=== PATIENT | male | born 1970 | race Caucasian/White ===

== ENCOUNTER 2016-04-08 08:55 | Emergency (ER) | payer BC ==
[2016-04-08 09:08] VITALS: BP 134/86; PULSE 70; RESP 18; TEMP 97.9; O2SAT 95
--- NOTE | 2016-04-08 09:20 | UCPHY ---
H & P Time Seen by Provider: 04/08/16 09:05 Patient Type: Established HPI/ROS: This patient describes skin lesions to the back of the scalp over the past week or so causing moderate discomfort. He was seen by Dr. Rodríguez today upstairs- primary care physician who started him on Bactrim but Dr. Rodríguez felt that 1 of them could be I&D done sent him here for that procedure. The patient reports mild to moderate discomfort associated with the lesions. He has never had this before. ROS: No fevers or chills. No other constitutional symptoms. HEENT: No URI symptoms. No headache or confusion. No drainage from the lesions. 5 point ROS is otherwise negative. Past Medical/Surgical History: Coronary artery disease [id number] diabetes Smoking Status: Former smoker Physical Exam: Physical Exam Vital signs are normal. General: No acute distress HEENT: No intraoral lesions. Eyes: Pupils equal and react to light. Extraocular motions are intact. Lungs: No respiratory distress. Cardiac: Brisk capillary refill is intact throughout. Pulses are 2+ and symmetric in the affected extremity. Skin: No rash or pallor. Patient has an erythematous papule to the occiput with mild tenderness. It is 1.5 cm in size and a 2nd lesion inferior to this that is slightly ulcerated tender and swollen. Neuro: Alert Initial differential diagnosis: Folliculitis versus MRSA lesions Constitutional: Initial Vital Signs Temperature (C) 36.6 C 04/08/16 09:05 Heart Rate 70 04/08/16 09:05 Respiratory Rate 18 04/08/16 09:05 Blood Pressure 134/86 H 04/08/16 09:05 O2 Sat (%) 95 04/08/16 09:05 O2 Delivery Mode Room Air Allergies/Adverse Reactions: No Known Allergies Allergy (Verified 04/08/16 09:03) Home Medications: Medication Instructions Recorded ASPIRIN [ECOTRIN] 04/08/16 Atorvastatin Calcium [Lipitor 10 04/08/16 mg (*)] Carvedilol 04/08/16 Clopidogrel Bisulfate [Plavix (*)] 04/08/16 Losartan Potassium [Cozaar 25 mg 04/08/16 (*)] Metformin HCl [Metformin 1000 mg] 04/08/16 Nitroglycerin [Nitrostat] 04/08/16 MDM/Departure - [facility] Procedures: I&D simple abscess: After verbal consent scrubbed the area with chlorhexidine. I used a 1% plain lidocaine, 27 gauge needle, 2 mL to the inferior lesion of the occiput with good effect. I then used a 11. Scalpel blade made a small T- shaped incision with release of minimal discharge with massage the area. Patient tolerated this well. A culture sent and pending. Dressing is applied. There were no complications. The patient tolerated the procedure well - Depart Disposition: Home, Routine, Self-Care Clinical Impression: Furuncle Condition: Good Instructions: Abscess (ED) Additional Instructions: Diagnosis: Furuncle (small abscess) Plan: Take the sulfa antibiotic as prescribed by Dr. Rodríguez Ibuprofen Tylenol for discomfort Apply warm packs to the affected area Return for any significant worsening despite the treatment plan. Referrals: Meño Rodríguez MD [Primary Care Provider] - As per Instructions - PQRS PQRS Measurement: NA
== END 2016-04-08 09:36 | disposition home or self-care (01) ==
LOC: CED 08:55
PROC: 0J9 Subcutaneous Tissue and Fascia, Drainage (ICD-10-PCS; principal; 2016-04-08)
DX: L02.821 Furuncle of head [any part, except face] (principal); Z87.891 Personal history of nicotine dependence
CPT/HCPCS: 99213-PO; G0463-PO

== ENCOUNTER 2016-04-13 13:10 | Emergency (ER) | payer BC ==
[2016-04-13 13:46] VITALS: BP 115/69; PULSE 79; RESP 18; TEMP 98.8; O2SAT 95
--- NOTE | 2016-04-13 15:20 | UCPHY ---
H & P Time Seen by Provider: 04/13/16 14:08 Patient Type: Established HPI/ROS: This patient returns with a lump on the back of the scalp there is having discomfort from the scalp lesion & some discharge. I saw this patient 5 days ago as addendum on Bactrim for folliculitis. At that time he did have 1 furuncle on his scalp that I indeed and is growing methicillin sensitive Staph. Most of his folliculitis on his face has significantly improve with the exception of this 1 lesion on the back of his occiput. ROS: No fevers or chills. No other constitutional symptoms. He reports no other skin complaints. No vomiting. 5 point ROS is otherwise negative. Past Medical/Surgical History: Folliculitis-as noted above otherwise healthy Smoking Status: Former smoker Physical Exam: Physical Exam Vital signs are normal. General: No acute distress Eyes: Pupils equal and react to light. Extraocular motions are intact. Lungs: No respiratory distress. Cardiac: Brisk capillary refill is intact throughout. Skin: There is a 2 cm area of swelling and fluctuance to the patient's scalp with associated erythema and warmth to touch. There is associated tenderness. Neuro: Alert and oriented x3 with no sensorimotor deficits. Constitutional: Initial Vital Signs Temperature (C) 37.1 C 04/13/16 13:42 Heart Rate 79 04/13/16 13:42 Respiratory Rate 18 04/13/16 13:42 Blood Pressure 115/69 04/13/16 13:42 O2 Sat (%) 95 04/13/16 13:42 O2 Delivery Mode Room Air Allergies/Adverse Reactions: No Known Allergies Allergy (Verified 04/13/16 13:42) Home Medications: Medication Instructions Recorded ASPIRIN [ECOTRIN] 04/08/16 Atorvastatin Calcium [Lipitor 10 04/08/16 mg (*)] Carvedilol 04/08/16 Clopidogrel Bisulfate [Plavix (*)] 04/08/16 Losartan Potassium [Cozaar 25 mg 04/08/16 (*)] Metformin HCl [Metformin 1000 mg] 04/08/16 Nitroglycerin [Nitrostat] 04/08/16 MDM/Departure - MDM Diagnostics: Simple I&D: After verbal consent basal chlorhexidine scrub. 1% lidocaine anesthesia, 27 gauge needle, 2 mL with good effect. A.c. 11. Scalpel blade and made a small T-shaped incision. With massage there is a small amount of purulent material is expressed and sent for culture. I then further massage the area until there is no further purulence. I then irrigated the cavity with saline with clear return. Bacitracin and dressing were applied. I counseled the patient regarding the abscess. No complications ED Course/Re-evaluation: The patient will continue on Bactrim for his methicillin sensitive Staph. - Depart Disposition: Home, Routine, Self-Care Clinical Impression: Scalp abscess Condition: Good Instructions: Abscess (ED) Additional Instructions: Diagnosis: Scalp abscess Plan: Clean the wound daily with warm soapy water Continue incomplete your Bactrim antibiotic Ibuprofen Tylenol for discomfort as needed Return for any significant worsening despite treatment plan Referrals: Meño Rodríguez MD [Primary Care Provider] - As per Instructions - PQRS PQRS Measurement: NA
== END 2016-04-13 16:02 | disposition home or self-care (01) ==
LOC: CED 13:10
PROC: 0H90XZZ Drainage of Scalp Skin, External Approach (ICD-10-PCS; principal; 2016-04-13)
DX: L02.811 Cutaneous abscess of head [any part, except face] (principal)
CPT/HCPCS: G0463-PO

== ENCOUNTER 2016-05-14 08:33 | Emergency (ER) | payer BC ==
[2016-05-14 08:49] VITALS: BP 118/78; PULSE 76; RESP 18; O2SAT 96
--- NOTE | 2016-05-14 09:01 | UCPHY ---
H & P Patient Type: Established Chief Complaint Nursing Narrative: was seen here a few weeks ago for a staph infection on head. Completed full course of anitbiotics, area of redness got better, but then grew, has now has redness and swelling on back of head, right side of face and right arm Time Seen by Provider: 05/14/16 08:56 HPI/ROS: CHIEF COMPLAINT: new lesion on the right arm, left leg. HISTORY OF PRESENT ILLNESS: 46-year-old male seen both in the middle of the month of March as well as about a week later. He had abscesses and cellulitis developing the scalp into lesser extent the mcdonough. Completed a course of Bactrim therapy however the sores are not coming back to some degree on the scalp but also mostly large pustules present on the right mid forearm as well as the left mid anterior thigh. Feels well otherwise. No fevers or chills. No nausea or vomiting. Did not developed diarrhea while on the antibiotics. I had the opportunity to check his cultures and both on the again on the they are both staph sensitive species, non MRSA. REVIEW OF SYSTEMS: General: No difficulty with syncope or near syncope or palpitations or feeling faint HEENT: No swelling to the tongue, lips, hypopharynx, or throat. No change in her voice Respiratory: No cough, no dyspnea. No pain or difficulty swallowing Cardiovascular: No chest pain, no palpitations. Gastrointestinal: No vomiting, no abdominal pain. Musculoskeletal: No peripheral edema or swelling Source: Patient Exam Limitations: No limitations - Personal History Current Tetanus/Diphtheria Vaccine: Yes - Medical/Surgical History Hx Asthma: No Hx Chronic Respiratory Disease: No Hx Diabetes: Yes Hx Cardiac Disease: Yes Hx Renal Disease: No Hx Cirrhosis: No Hx Alcoholism: No Hx HIV/AIDS: No Hx Splenectomy or Spleen Trauma: No Other PMH: HTN, RI, orthro surgerues - Family History Significant Family History: No pertinent family hx - Social History Smoking Status: Former smoker Alcohol Use: None Drug Use: None - Physical Exam Exam: General Appearance: Alert, no distress. Afebrile. Normal phonation. No respiratory distress. Eyes: Pupils equal and round no pallor or injection. No icterus ENT, Mouth: Mucous membranes moist. Pharynx without erythema or exudate. TM Clear. Neck: Areas of the prior abscess have healed to a mild degree. There is no fluctuance however there is good too numerous to count small lesions present on the back of the neck and to the far lesser degree on the anterior left service of the neck at the area where he shaves compatible with folliculitis barbae. Skin: Warm and dry, but her lesions present to the right forearm which is like a small scabbed over area of 1.5 cm without sj fluctuance which is somewhat necrotic in the center. There is similar lesions present left thigh the smaller. Musculoskeletal: No joint swelling. Extremities: No edema. Psychiatric: Normal affect. Constitutional: Initial Vital Signs Heart Rate 76 05/14/16 08:46 Respiratory Rate 18 05/14/16 08:46 Blood Pressure 118/78 05/14/16 08:46 O2 Sat (%) 96 05/14/16 08:46 O2 Delivery Mode Room Air Allergies/Adverse Reactions: No Known Allergies Allergy (Verified 05/14/16 08:45) Home Medications: Medication Instructions Recorded ASPIRIN [ECOTRIN] 04/08/16 Atorvastatin Calcium [Lipitor 10 04/08/16 mg (*)] Carvedilol 04/08/16 Clopidogrel Bisulfate [Plavix (*)] 04/08/16 Losartan Potassium [Cozaar 25 mg 04/08/16 (*)] Metformin HCl [Metformin 1000 mg] 04/08/16 Nitroglycerin [Nitrostat] 04/08/16 Carvedilol [Coreg] 05/14/16 Cephalexin [Keflex (*)] 500 mg PO BID #60 cap 05/14/16 Chlorhexidin/Isopropyl Alcohol 960 ml TP DAILY #0 liquid 05/14/16 [Dynahex 2% Liquid] Metformin HCl [Glucophage 1000 mg] 05/14/16 Medical Decision Making ED Course/Re-evaluation: I explained to the patient at length the need to clean his skin. 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 Thereby he will go on a course of chlorhexidine and a month long course of Keflex. Late entry: The next day I called a prescription for Bactroban into his pharmacy of choice, [facility] in [place]. This is to be used in both nostrils twice daily for the next 30 days. Thereby he had a prescription with 2 refills called in, by me. Differential Diagnosis: Diagnostic considerations include, but are not limited to, the following: Folliculitis. Folliculitis barbae, cellulitis, furuncles, carbuncles Departure - Departure Disposition: Home, Routine, Self-Care Clinical Impression: Furunculosis of multiple sites Condition: Good Instructions: Furunculosis and Carbunculosis (ED) Additional Instructions: Shower twice daily - use an antibacterial soap Using chlorhexidine once daily Do not shave or cut her hair for 1 month Keflex for 30 days Referrals: Meño Rodríguez MD [Primary Care Provider] - As per Instructions Ashley Nicholson MD [Medical Doctor] - As per Instructions Prescriptions: Cephalexin [Keflex (*)] 500 mg PO BID #60 cap Chlorhexidin/Isopropyl Alcohol [Dynahex 2% Liquid] 960 ml TP DAILY #0 liquid - PQRS PQRS Measurement: Not applicable
== END 2016-05-14 09:18 | disposition home or self-care (01) ==
LOC: CED 08:33
DX: L02.423 Furuncle of right upper limb (principal); L02.426 Furuncle of left lower limb; Z87.891 Personal history of nicotine dependence
CPT/HCPCS: 99214-PO; G0463-PO